=== PATIENT | male | born 1985 | race Caucasian/White ===

== ENCOUNTER 2016-10-20 21:07 | Emergency (ER) | payer BC ==
--- NOTE | 2016-10-20 22:00 | UC ---
Upper Extremity HPI - HPI Summary HPI Summary: 31M presents with left thumb injury today. He was chopping up wood and hit the ax against his finger. The nail popped off at the base and is bleeding. His tetanus was 6 years ago. He has a throbbing pain in his finger. He denies any numbness or tingling. He is right handed. - History of Current Complaint Chief Complaint: EDLacSutureRecheck Stated Complaint: THUMB LAC Time Seen by Provider: 10/20/16 21:29 Pain Intensity: 5 - Allergies/Home Medications Allergies/Adverse Reactions: Allergies Allergy/AdvReac Type Severity Reaction Status Date / Time No Known Allergies Allergy Verified 10/20/16 22:12 PMH/Surg Hx/FS Hx/Imm Hx Previously Healthy: Yes Endocrine History: Other - no DM Other Endocrine History: no DM Cardiovascular History: Other Other Cardiovascular History: no CAD - Family History Known Family History: Positive: Hypertension - Social History Alcohol Use: Rare Substance Use Type: None Smoking Status (MU): Never Smoked Tobacco Review of Systems Constitutional: Negative Skin: Other - nail injury left thumb Respiratory: Negative Cardiovascular: Negative All Other Systems Reviewed And Are Negative: Yes Physical Exam Triage Information Reviewed: Yes Appearance: Well-Appearing, Other: - nail sticking out from nailbed on left thumb with subungal hematoma present Vital Signs: Initial Vital Signs Temp 98.5 F 10/20/16 21:08 Pulse 100 10/20/16 21:08 Resp 18 10/20/16 21:08 BP 140/89 10/20/16 21:08 Pulse Ox 99 10/20/16 21:08 Eyes: Positive: Conjunctiva Clear Respiratory: Positive: Lungs clear, Normal breath sounds Cardiovascular: Positive: RRR, No Murmur Musculoskeletal: Positive: Strength Intact - left thumb, ROM Intact, Other: - good pulses Procedures - Procedure Summary Procedure Summary: performed digital block left thumb and placed nail back into nailbed - Nail Trepanation Nail Trepanation Location: left thumb Method of Drainage: nail cauterized Finger Splint: Yes Diagnostics - Radiology finger Xray Interpretation: Positive (See Comments) - communicated fracture of left thumb at distal phalanx Radiology Interpretation Completed By: Radiologist Upper Extremity Course/Dx - Course Course Of Treatment: 31M presents with left thumb nail injury s/p hitting with a ax. tetanus up to date. nail is sticking out from nailbed but attached at distal end so performed digital block and stuck nail back into nailbed. also had subungual hematoma which performed nail trepantion to remove. xray finger shows distal phalanx fracture so placed in metal finger splint. patient understands and agrees with plan - Differential Dx/Diagnosis Differential Diagnosis/HQI/PQRI: Fracture (Closed), Other - laceration, avulsion Provider Diagnoses: left thumb nail injury. distal phalanx fracture. subungual hematoma left thumb Discharge - Discharge Plan Condition: Good Disposition: HOME Prescriptions: Cephalexin CAP* [Keflex CAP*] 500 mg PO BID #9 cap Patient Education Materials: Finger Fracture (ED) Referrals: No Primary Care Phys,NOPCP [Primary Care Provider] - Additional Instructions: Keep splint on area for 2 weeks Nail will fall off on own Take antibiotic twice a day for 5 days, first dose given in ED Follow up with primary within 7 days Return to ED if develop any signs of infection
--- NOTE | 2016-10-20 22:36 | RAD ---
INDICATION: Crush injury to the distal left thumb while chopping firewood COMPARISON: None TECHNIQUE: 3 views of the left thumb were obtained. FINDINGS: There is comminuted fracture involving the distal phalanx of the left thumb. Remaining visualized bones are intact and appropriately aligned. IMPRESSION: There is a mostly nondisplaced comminuted fracture involving the distal phalanx of the left thumb consistent with a crush injury.
[2016-10-20] MEDS ORDERED: Cephalexin CAP* 500 MG PO ONE (23:00)
[2016-10-20 23:39] VITALS: BP 136/85
== END 2016-10-20 23:39 | disposition home or self-care (01) ==
LOC: ED 21:07
DX: S69.92XA Unspecified injury of left wrist, hand and finger(s), initial encounter (principal); S62.639A Displaced fracture of distal phalanx of unspecified finger, initial encounter for closed fracture; W22.8XXA Striking against or struck by other objects, initial encounter; Y93.9 Activity, unspecified; Y92.9 Unspecified place or not applicable
CPT/HCPCS: 99282; A9270-GY